=== PATIENT | male | born 1945 | race Caucasian/White ===

== ENCOUNTER 2017-03-19 22:35 | Emergency (ER) | payer OTHER ==
[2017-03-19] MEDS ORDERED: ONDANSETRON 4 MG/2 ML VIAL IVPB PRN (23:23)
[2017-03-19] MEDS ORDERED: FOLIC ACID INJECTION - 1 MG, THIAMINE HCL 100 MG, MULTIVIT INJECTION ADULT 10 ML in SOD... IVPB ONE (23:23)
[2017-03-19 23:42] VITALS: TEMP 97.8; BMI 35.9
[2017-03-20 00:25] LABS: MCH 20.8 pg (25.7-33.7); MCHC 31.7 g/dl (32.0-35.9); MEAN CELL VOLUME 65.7 fl (80-96); MEAN PLT VOLUME 8.8 fl (7.5-11.1); PLATELET COUNT 228 K/MM3 (134-434); RDW 15.9 % (11.9-15.9); WHITE BLOOD COUNT 10.8 K/mm3 (4.0-10.0)
[2017-03-20 00:41] LABS: ACTIVATED PTT 28.3 SECONDS (26.9-34.4)
[2017-03-20] MEDS ORDERED: LORazepam 1 MG TABLET PO ONE (01:39)
[2017-03-20 01:43] LABS: HYPOCHROMIA 3+; MICROCYTOSIS 1+; TOTAL CELLS COUNTED 100
[2017-03-20 01:44] LABS: PLATELET COMMENT2 FEW LARGE PLTS
[2017-03-20 01:49] LABS: ALBUMIN 3.8 g/dl (3.4-5.0); ANION GAP 16 (8-16); BILIRUBIN,TOTAL 0.6 mg/dL (0.2-1.0); CALCIUM 8.8 mg/dL (8.5-10.1); CO2 18 mmol/L (21-32); CREATININE 0.8 mg/dL (0.7-1.3); GLUCOSE,RANDOM 130 mg/dL (74-106); SGOT/AST 29 U/L (15-37); SGPT/ALT 30 U/L (12-78); TOT PROT 6.7 g/dl (6.4-8.2)
[2017-03-20 01:52] LABS: ALK PHOS 65 U/L (45-117); CPK 342 IU/L (39-308); TROPONIN I 0.05 ng/ml (0.00-0.05)
[2017-03-20] MEDS ORDERED: LORazepam 0.5 MG TABLET ONE (01:52)
--- NOTE | 2017-03-20 02:37 | PDOC ---
History of Present Illness - General Chief Complaint: Alcohol intoxication Stated Complaint: INTOX/FALL Time Seen by Provider: 03/19/17 23:08 History Source: Patient Exam Limitations: Intoxication - History of Present Illness Initial Comments: 03/20/17 02:30 71yo Male patient w/ PmHx: HTN, Cardiac Stent (2011), Kidney transplant (2013), Rheumatoid Arthritis presents to ED c/o fall. Patient states he was out drinking at [employer], and Vodka with soda x 2. While leaving the bar, he lost his balance and fell. Patient states he was unable to get up, and his friend he was with could not lift him as well, so he called 911. Patient denies head injury, LOC, CP, Abd pain, n/v/d, or any other complaints at this time. Occurred: reports: just prior to arrival Pain Location: reports: lower extremity, upper extremity. denies: none, abdomen , back, chest, face, head, mouth, neck, other, pelvis Method of Injury: Yes: fall. No: unknown, assault, direct blow, motor vehicle crash, other Modifying Factors: worse with: None, cold therapy, immobilization, pain medication, rest, other Loss of Consciousness: no loss of consciousness Associated Symptoms (Fall): trouble walking Past History - Travel Traveled outside of the country in the last 30 days: No Close contact w/someone who was outside of country & ill: No - Past Medical History Allergies/Adverse Reactions: Allergies Allergy/AdvReac Type Severity Reaction Status Date / Time No Known Allergies Allergy Verified 03/19/17 23:39 Home Medications: Ambulatory Orders Amlodipine Besylate [Norvasc -] 5 mg PO DAILY 03/19/17 Aspirin [[place] Aspirin] 81 mg PO DAILY 03/19/17 Chlorthalidone 25 mg PO DAILY 03/19/17 Cholecalciferol (Vitamin D3) [Vitamin D3 -] 50,000 unit PO WEEKLY 03/19/17 Etanercept [Enbrel] 50 mg SQ WEEKLY 03/19/17 Insulin Glargine,Hum.rec.anlog [Lantus Solostar PEN (NF)] 40 units SQ HS Insulin Lispro [Humalog] 12 unit SQ TID 03/19/17 Linagliptin [Tradjenta] 5 mg PO DAILY 03/19/17 Magnesium 600 mg PO DAILY 03/19/17 Metformin HCl 500 mg PO TID 03/19/17 Metoprolol Tartrate [Lopressor -] 75 mg PO BID 03/19/17 Mycophenolate Sodium [Myfortic] 120 mg PO HS 03/19/17 Mycophenolate Sodium [Myfortic] 360 mg PO AM 03/19/17 Prednisolone [Millipred] 5 mg PO DAILY 03/19/17 Simvastatin 20 mg PO HS 03/19/17 Tacrolimus [Prograf] 2 mg PO BID 03/19/17 Cardiac Disorders: Yes Diabetes: Yes HTN: Yes - Psycho/Social/Smoking Cessation Hx Suicidal Ideation: No Smoking History: Current some day smoker Have you smoked in the past 12 months: Yes Information on smoking cessation initiated: No Hx Alcohol Use: Yes Substance Use Type: Alcohol Trauma Specific PMHX - Complaint Specific PMHX Arthritis: No Back Injury: No Neck Injury: No Hx Sacro Iliac Joint Dysfunction: No Review of Systems - Review of Systems Able to Perform ROS?: Yes Is the patient limited Mohawk proficient: No Constitutional: Yes: Weakness. No: Chills, Fever Respiratory: No: Cough, Shortness of Breath, Stridor, Wheezing Cardiac (ROS): No: Chest Pain, Edema, Lightheadedness, Palpitations, Syncope, Chest Tightness ABD/GI: No: Constipated, Diarrhea, Nausea, Poor Appetite, Poor Fluid Intake, Vomiting : No: Burning, Dysuria, Flank Pain, Hematuria Musculoskeletal: No: Back Pain, Joint Swelling, Muscle Pain, Muscle Weakness, Neck Pain, Joint Stiffness Integumentary: Yes: Other (Abrasion) Neurological: Yes: Unsteady Gait. No: Headache, Seizure, Weakness, Ataxia, Dizziness All Other Systems: Reviewed and Negative *Physical Exam - Vital Signs Last Vital Signs Temp Pulse Resp BP Pulse Ox 97.8 F 98 H 20 141/100 95 03/19/17 22:52 03/19/17 22:52 03/19/17 22:52 03/19/17 22:52 03/19/17 22:52 - Physical Exam General Appearance: Yes: Nourished, Appropriately Dressed, Alcohol on Breath. No: Apparent Distress, Mild Distress, Moderate Distress, Severe Distress HEENT: positive: EOMI, YONATHAN, Normal ENT Inspection, Normal Voice, Symmetrical, TMs Normal, Pharynx Normal. negative: Pharyngeal Erythema, Tonsillar Exudate, Tonsillar Erythema, TM Bulging, TM Dull, TM Erythema Neck: positive: Trachea midline, Normal Thyroid, Supple. negative: Lymphadenopathy (R), Lymphadenopathy (L), Tender lateral, Tender midline Respiratory/Chest: positive: Lungs Clear, Normal Breath Sounds. negative: Chest Tender, Respiratory Distress, Accessory Muscle Use, Labored Respiration, Rapid RR Cardiovascular: positive: Regular Rhythm, Regular Rate Gastrointestinal/Abdominal: positive: Normal Bowel Sounds, Soft, Distended. negative: Tender, Guarding, Rebound, Tenderness Musculoskeletal: positive: Normal Inspection. negative: CVA Tenderness Extremity: positive: Normal Capillary Refill, Normal Inspection, Normal Range of Motion, Pelvis Stable. negative: Pedal Edema, Swelling, Calf Tenderness, Erythema, Inflammation Integumentary: positive: Normal Color, Dry, Warm, Other (Abrasion to right elbow and forearm). negative: Rash, Swelling, Ecchymosis, Bruising Neurologic: positive: dry kiln loader II-XII NML intact, Fully Oriented, Alert, Normal Mood/ Affect, Normal Response, Motor Strength 11/20 ED Treatment Course - LABORATORY CBC & Chemistry Diagram: 03/20/17 00:15 03/20/17 01:00 - ADDITIONAL ORDERS Additional order review: Laboratory Results 03/20/17 03/20/17 03/20/17 01:00 01:00 00:15 INR PTT (Actin FS) Sodium 134 L Potassium 4.1 Chloride 100 Carbon Dioxide 18 L D Anion Gap 16 BUN 15 D Creatinine 0.8 Creat Clearance w eGFR > 60 Random Glucose 130 H D Calcium 8.8 Total Bilirubin 0.6 AST 29 D ALT 30 Alkaline Phosphatase 65 D Creatine Kinase 342 H Creatine Kinase Index 0.9 CK-MB (CK-2) 3.207 Troponin I 0.05 Total Protein 6.7 Albumin 3.8 Alcohol, Quantitative 57.2 H* Cancelled 03/20/17 03/20/17 00:15 00:15 INR 1.00 PTT (Actin FS) 28.3 Sodium Cancelled Potassium Cancelled Chloride Cancelled Carbon Dioxide Cancelled Anion Gap Cancelled BUN Cancelled Creatinine Cancelled Creat Clearance w eGFR Cancelled Random Glucose Cancelled Calcium Cancelled Total Bilirubin Cancelled AST Cancelled ALT Cancelled Alkaline Phosphatase Cancelled Creatine Kinase Cancelled Creatine Kinase Index CK-MB (CK-2) Troponin I Cancelled Total Protein Cancelled Albumin Cancelled Alcohol, Quantitative 09/02/17 00:15 RBC 5.09 MCV 65.7 L MCHC 31.7 L RDW 15.9 MPV 8.8 Neutrophils % Y Lymphocytes % Y - RADIOLOGY Radiology Studies Ordered: Category Date Time Status CERVICAL SPINE CT W/O CONTR [CT] Stat CT Scan 03/20/17 00:[address] WITHOUT CONTRAST [CT] Stat CT Scan 03/20/17 00:26 Taken ELBOW-LEFT [RAD] Stat Radiology 03/19/17 23:23 Ordered - Medications Given in the ED: ED Medications Discontinued Medications Generic Name Dose Route Start Last Admin Trade Name Freq PRN Reason Stop Dose Admin Lorazepam 1 mg 03/20/17 01:39 03/20/17 01:57 Ativan - PO 03/20/17 01:40 1 mg ONCE ONE Administration Medical Decision Making - Medical Decision Making 03/20/17 04:33 Patient refused X-ray of right elbow. 03/20/17 05:31 Patient ambulated 20 feet in [place]. Gait is steady, patient appears coherent. No acute distress noted. *DC/Admit/Observation/Transfer Diagnosis at time of Disposition: Intoxication Fall Qualifiers: Encounter type: initial encounter Qualified Code(s): W19.XXXA - Unspecified fall, initial encounter - Discharge Dispostion Disposition: HOME Condition at time of disposition: Improved Admit: No - Referrals Referrals: Gui Ma MD [Primary Care Provider] - - Patient Instructions Printed Discharge Instructions: Alcohol Use Disorder, DI for Abrasion Additional Instructions: Follow up with Dr. Ma this week for further evaluation. Drink plenty fluids and rest. Avoid alcohol at this time. Return if any concerns for further evaluation. Print Language: ALBANIAN
[2017-03-20 02:56] LABS: URINE APPEARANCE CLEAR; URINE BILIRUBIN NEGATIVE (NEGATIVE); URINE BLOOD NEGATIVE (NEGATIVE); URINE COLOR LT. YELLOW; URINE GLUCOSE (UA) NEGATIVE (NEGATIVE); URINE KETONE NEGATIVE (NEGATIVE); URINE LEUK ESTERASE NEGATIVE (NEGATIVE); URINE NITRITE NEGATIVE (NEGATIVE); URINE UROBILINOGEN 0.2 mg/dL (0.2-1.0)
[2017-03-20 02:57] LABS: URINE PROTEIN 2+ (NEGATIVE)
[2017-03-20 03:06] LABS: GRANULAR CASTS 3 /lpf; URINE HYALINE CAST 1 /lpf; URINE MUCUS RARE; URINE RBC <1 /hpf (0-3); URINE WBC 3 /hpf (3-5)
[2017-03-20 05:27] VITALS: BP 151/89; PULSE 89
== END 2017-03-20 05:41 | disposition home or self-care (01) ==
LOC: JER 22:35
PROC: 3E033GC Introduction of Other Therapeutic Substance into Peripheral Vein, Percutaneous Approach (ICD-10-PCS; principal; 2017-03-19)
DX: R10.10 Upper abdominal pain, unspecified (principal); S50.311A Abrasion of right elbow, initial encounter; S50.811A Abrasion of right forearm, initial encounter; W19.XXXA Unspecified fall, initial encounter; Y93.89 Activity, other specified; Y92.89 Other specified places as the place of occurrence of the external cause
CPT/HCPCS: 36415; 70450-TC; 72125-TC; 80053; 80307; 81003; 81015; 82553; 84484; 85025; 85610; 85730; 96365; 96366; 99283-25

== ENCOUNTER 2018-09-10 00:40 | Emergency (ER) | payer OTHER ==
--- NOTE | 2018-09-10 01:31 | PDOC ---
History of Present Illness - History of Present Illness Initial Comments: HTN, Cardiac Stent (2011), Kidney transplant (2013), and Rheumatoid Arthritis presenting to the ED forfall while intoxicated. Patient states that he was helping afriend get into his house after having over ten drinks and fell to the floor. Denies hitting his head or hurting any part of his body. EMS 09/10/18 01:33 <Hieu Sebastian - Last Filed: 09/10/18 04:46> <Thalia Sharma - Last Filed: 09/10/18 04:56> - General Stated Complaint: FALL Time Seen by Provider: 09/10/18 01:31 Past History - Past Medical History Cardiac Disorders: Yes Diabetes: Yes HTN: Yes - Suicide/Smoking/Psychosocial Hx Smoking History: Current some day smoker Have you smoked in the past 12 months: Yes Hx Alcohol Use: Yes Substance Use Type: Alcohol <Hieu Sebastian - Last Filed: 09/10/18 04:46> <Thalia Sharma - Last Filed: 09/10/18 04:56> - Past Medical History Allergies/Adverse Reactions: Allergies Allergy/AdvReac Type Severity Reaction Status Date / Time No Known Allergies Allergy Verified 09/10/18 02:53 Home Medications: Ambulatory Orders Amlodipine Besylate [Norvasc -] 5 mg PO DAILY 03/19/17 Aspirin [[place] Aspirin] 81 mg PO DAILY 03/19/17 Chlorthalidone 25 mg PO DAILY 03/19/17 Cholecalciferol (Vitamin D3) [Vitamin D3 -] 50,000 unit PO WEEKLY 03/19/17 Etanercept [Enbrel] 50 mg SQ WEEKLY 03/19/17 Insulin Glargine,Hum.rec.anlog [Lantus Solostar PEN (NF)] 40 units SQ HS Insulin Lispro [Humalog] 12 unit SQ TID 03/19/17 Linagliptin [Tradjenta] 5 mg PO DAILY 03/19/17 Magnesium 600 mg PO DAILY 03/19/17 Metoprolol Tartrate [Lopressor -] 75 mg PO BID 03/19/17 Mycophenolate Sodium [Myfortic] 120 mg PO HS 03/19/17 Prednisolone [Millipred] 5 mg PO DAILY 03/19/17 Simvastatin 20 mg PO HS 03/19/17 Tacrolimus [Prograf] 2 mg PO BID 03/19/17 metFORMIN HCL [Metformin HCl] 500 mg PO TID 03/19/17 *Physical Exam - Vital Signs Last Vital Signs Temp Pulse Resp BP Pulse Ox 97.6 F 88 18 158/84 96 09/10/18 00:45 09/10/18 00:45 09/10/18 00:45 09/10/18 00:45 09/10/18 00:45 <Thalia Sharma - Last Filed: 09/10/18 04:56> Moderate Sedation - Procedure Monitoring Vital Signs: Procedure Monitoring Vital Signs Temperature 97.6 F 09/10/18 00:45 Pulse Rate 88 09/10/18 00:45 Respiratory Rate 18 09/10/18 00:45 Blood Pressure 158/84 09/10/18 00:45 O2 Sat by Pulse Oximetry (%) 96 09/10/18 00:45 <Thalia Sharma - Last Filed: 09/10/18 04:56> Medical Decision Making - Medical Decision Making 09/10/18 03:03 Patient Name: RUBÉN FERREIRA THIS IS A PRELIMINARY REPORT FROM IMAGING CONCRETE TILE MACHINE OPERATOR EXAM: CT head without contrast IMAGES: 161 DATE OF EXAM: 2018-09-10 02:11:34 REASON FOR EXAM: Rule out bleed or fracture. COMPARISON: None. FINDINGS: There is cerebral atrophy. Chronic microvascular ischemic changes are noted. No acute intracranial hemorrhage or acute infarction. The visualized aspect of the paranasal sinuses and mastoid air cells are unremarkable. Exophthalmus. No acute fracture. 09/10/18 03:17 Patient Name: RUBÉN FERREIRA THIS IS A PRELIMINARY REPORT FROM IMAG[facility] CONCRETE TILE MACHINE OPERATOR EXAM: CT cervical spine without contrast IMAGES:328 DATE OF EXAM: 2018-09-10 02:08:40 REASON FOR EXAM: Rule out bleed or fracture COMPARISON: None Findings: Straightening of the cervical lordosis with normal alignment. Moderate degenerative changes noted. No acute cervical spine fracture or dislocation. Small posterior left thyroid nodule. 09/10/18 04:56 ETOH level 50s. Pt can be discharged safely. <Thalia Sharma - Last Filed: 09/10/18 04:56> *DC/Admit/Observation/Transfer - Discharge Dispostion Decision to Admit order: No <Hieu Sebastian - Last Filed: 09/10/18 04:46> <Thalia Sharma - Last Filed: 09/10/18 04:56> Diagnosis at time of Disposition: Intoxication Fall Qualifiers: Encounter type: initial encounter Qualified Code(s): W19.XXXA - Unspecified fall, initial encounter - Discharge Dispostion Disposition: HOME Condition at time of disposition: Improved - Referrals Referrals: Gui Ma MD [Primary Care Provider] - - Patient Instructions Printed Discharge Instructions: How to Prevent Falls Additional Instructions: You did not have a bleed in your head or fracture you neck. Please be careful while drinking. Please return to the ED if you have new or worsening symptoms. - Post Discharge Activity
[2018-09-10 02:54] VITALS: BMI 30.5
--- NOTE | 2018-09-10 04:04 | PDOC ---
Attending Attestation - ED Attending Attestation I have performed the following: I have examined & evaluated the patient, The case was reviewed & discussed with the resident, I agree w/resident's findings & plan - HPI HPI: 09/10/18 04:03 Pt comes with fall; he has known alcohol abuse/use. - Physicial Exam PE: 09/10/18 04:03 Agree with residet exam - Medical Decision Making 09/10/18 04:04 Home, as he is stable. Exam normal. CT scan head and c spine normal. 09/10/18 03:03 Patient Name: RUBÉN FERREIRA THIS IS A PRELIMINARY REPORT FROM IMAGING CIRCUIT DESIGN ENGINEER EXAM: CT head without contrast IMAGES: 161 DATE OF EXAM: 2018-09-10 02:11:34 REASON FOR EXAM: Rule out bleed or fracture. COMPARISON: None. FINDINGS: There is cerebral atrophy. Chronic microvascular ischemic changes are noted. No acute intracranial hemorrhage or acute infarction. The visualized aspect of the paranasal sinuses and mastoid air cells are unremarkable. Exophthalmus. No acute fracture. 09/10/18 03:17 Patient Name: RUBÉN FERREIRA THIS IS A PRELIMINARY REPORT FROM IMAGING CIRCUIT DESIGN ENGINEER EXAM: CT cervical spine without contrast IMAGES:328 DATE OF EXAM: 2018-09-10 02:08:40 REASON FOR EXAM: Rule out bleed or fracture COMPARISON: None Findings: Straightening of the cervical lordosis with normal alignment. Moderate degenerative changes noted. No acute cervical spine fracture or dislocation. Small posterior left thyroid nodule. 09/10/18 04:57 D/C home, as ETOH is 57. Pt ambulating about the ER and appears well.
[2018-09-10 05:12] VITALS: BP 139/81; PULSE 123; TEMP 98.4
== END 2018-09-10 05:03 | disposition home or self-care (01) ==
LOC: JER 00:40
DX: F10.120 Alcohol abuse with intoxication, uncomplicated (principal); Y90.2 Blood alcohol level of 40-59 mg/100 ml; W18.39XA Other fall on same level, initial encounter; Y93.89 Activity, other specified; Y92.098 Other place in other non-institutional residence as the place of occurrence of the external cause; Y99.8 Other external cause status; I25.10 Atherosclerotic heart disease of native coronary artery without angina pectoris; I10 Essential (primary) hypertension; Z95.5 Presence of coronary angioplasty implant and graft; E11.9 Type 2 diabetes mellitus without complications; Z79.4 Long term (current) use of insulin; E78.00 Pure hypercholesterolemia, unspecified; M06.9 Rheumatoid arthritis, unspecified; Z94.0 Kidney transplant status; F17.200 Nicotine dependence, unspecified, uncomplicated
CPT/HCPCS: 36415; 70450-TC; 72125-TC; 80307; 99282-25

== ENCOUNTER 2018-11-19 21:20 | Emergency (ER) | payer OTHER ==
[2018-11-19] MEDS ORDERED: FOLIC ACID INJECTION - 1 MG, THIAMINE HCL 100 MG, MULTIVIT INJECTION ADULT 10 ML in SOD... IVPB ONE (22:17)
[2018-11-19 22:37] VITALS: BMI 33.9
[2018-11-19 23:57] LABS: ALBUMIN 3.9 g/dl (3.4-5.0); ALK PHOS 65 U/L (45-117); ANION GAP 13 MMOL/L (8-16); BLOOD UREA NITROGEN 30 mg/dL (7-18); CALCIUM 9.9 mg/dL (8.5-10.1); CHLORIDE 98 mmol/L (98-107); CO2 21 mmol/L (21-32); CREATININE 1.8 mg/dL (0.55-1.3); GLUCOSE,RANDOM 279 mg/dL (74-106); POTASSIUM 3.8 mmol/L (3.5-5.1); SGOT/AST 41 U/L (15-37); SGPT/ALT 27 U/L (13-61); SODIUM 132 mmol/L (136-145); TOT PROT 7.5 g/dl (6.4-8.2)
[2018-11-20] MEDS ORDERED: SODIUM CHLORIDE 0.9% 500 ML INFUS.BAG IV ONE (00:46)
[2018-11-20] MEDS ORDERED: ASPIRIN 81 MG CHEWABLE TABLETS PO ONE (00:50)
[2018-11-20] MEDS ORDERED: METOPROLOL TARTRATE 50 MG TABLET (FP) PO ONE (00:51)
[2018-11-20 01:11] LABS: HEMATOCRIT 32.8 % (35.4-49); HEMOGLOBIN 10.3 GM/dL (11.7-16.9); MCH 20.7 pg (25.7-33.7); MCHC 31.5 g/dl (32.0-35.9); MEAN CELL VOLUME 65.6 fl (80-96); MEAN PLT VOLUME 8.9 fl (7.5-11.1); PLATELET COUNT 241 K/MM3 (134-434); RDW 16.2 % (11.9-15.9); WHITE BLOOD COUNT 16.1 K/mm3 (4.0-10.0)
[2018-11-20] MEDS ORDERED: ASPIRIN 81 MG CHEWABLE TABLETS ONE (01:19)
[2018-11-20] MEDS ORDERED: METOPROLOL TARTRATE 50 MG TABLET (FP) ONE (01:20)
--- NOTE | 2018-11-20 01:50 | PDOC ---
Documentation entered by Yaquelin Vega SCRIBE, acting as scribe for Thalia Sharma MD. Thalia Sharma MD: This documentation has been prepared by the Silvia bajwa Nirvannie, SCRIBE, under my direction and personally reviewed by me in its entirety. I confirm that the documentation accurately reflects all work, treatment, procedures, and medical decision making performed by me. History of Present Illness - General Stated Complaint: INTOX Time Seen by Provider: 11/19/18 21:40 History Source: Patient Exam Limitations: No Limitations - History of Present Illness Initial Comments: 11/19/18 22:39 The patient is a 73 year old male, with a significant past medical history of HTN, DMII, HLD, cardiac stenting (2009), kidney transplant (2013), and psoriatic arthritis, who presents to the emergency department s/p mechanical fall. As per patient, he was drinking today in [place] then drove home. Upon his arrival home, patient endorses urinating onto himself then a mechanical fall. Patients neighbors attempted to help him but, could not subsequently calling for EMS. As per EMS, patient was short of breath en route (no O2 saturation noted) thus they placed him on O2. While in the ED, patient has not complaints. He denies any LOC or head/neck trauma. He denies any recent fevers, chills, headache or dizziness. He denies any recent nausea, vomit, diarrhea or constipation. He denies any recent chest pain or shortness of breath. He denies any recent dysuria, frequency, urgency or hematuria. Allergies: NKDA Past surgical history: Knee replacement. Renal transplant (2013). Cardiac stenting Social History: Nonsmoker. Denies EtOH use and recreational drug use. Primary Care Physician: Dr. Ma GI: Dr. Gresham Past History - Past Medical History Allergies/Adverse Reactions: Allergies Allergy/AdvReac Type Severity Reaction Status Date / Time No Known Allergies Allergy Verified 09/10/18 02:53 Home Medications: Ambulatory Orders Amlodipine Besylate [Norvasc -] 5 mg PO DAILY 03/19/17 Aspirin [[place] Aspirin] 81 mg PO DAILY 03/19/17 Chlorthalidone 25 mg PO DAILY 03/19/17 Cholecalciferol (Vitamin D3) [Vitamin D3 -] 50,000 unit PO WEEKLY 03/19/17 Etanercept [Enbrel] 50 mg SQ WEEKLY 03/19/17 Insulin Glargine,Hum.rec.anlog [Lantus Solostar PEN (NF)] 40 units SQ HS Insulin Lispro [Humalog] 12 unit SQ TID 03/19/17 Linagliptin [Tradjenta] 5 mg PO DAILY 03/19/17 Magnesium 600 mg PO DAILY 03/19/17 Metoprolol Tartrate [Lopressor -] 75 mg PO BID 03/19/17 Mycophenolate Sodium [Myfortic] 120 mg PO HS 03/19/17 Prednisolone [Millipred] 5 mg PO DAILY 03/19/17 Simvastatin 20 mg PO HS 03/19/17 Tacrolimus [Prograf] 2 mg PO BID 03/19/17 metFORMIN HCL [Metformin HCl] 500 mg PO TID 03/19/17 Cardiac Disorders: Yes COPD: No Diabetes: Yes HTN: Yes - Immunization History Td Vaccination: Yes TDAP Vaccination: Yes Immunization Up to Date: Yes - Suicide/Smoking/Psychosocial Hx Smoking History: Current some day smoker Have you smoked in the past 12 months: Yes Hx Alcohol Use: Yes Drug/Substance Use Hx: No Substance Use Type: Alcohol Review of Systems - Review of Systems Able to Perform ROS?: Yes Comments:: 11/19/18 22:40 GENERAL/CONSTITUTIONAL: No fever or chills. No weakness. HEAD, EYES, EARS, NOSE AND THROAT: No change in vision. No ear pain or discharge. No sore throat. CARDIOVASCULAR: No chest pain or shortness of breath. RESPIRATORY: No cough, wheezing, or hemoptysis. GASTROINTESTINAL: No nausea, vomiting, diarrhea or constipation. GENITOURINARY: No dysuria, frequency, or change in urination. MUSCULOSKELETAL: No joint or muscle swelling or pain. No neck or back pain. SKIN: +Abrasions to the upper and lower extremity. NEUROLOGIC: No headache, vertigo, loss of consciousness, or change in strength/ sensation. ENDOCRINE: No increased thirst. No abnormal weight change. HEMATOLOGIC/LYMPHATIC: No anemia, easy bleeding, or history of blood clots. ALLERGIC/IMMUNOLOGIC: No hives or skin allergy. All Other Systems: Reviewed and Negative *Physical Exam - Vital Signs Last Vital Signs Temp Pulse Resp BP Pulse Ox 98.3 F 120 H 20 123/61 97 11/19/18 21:25 11/19/18 21:25 11/19/18 21:25 11/19/18 21:25 11/19/18 21:25 - Physical Exam Comments: 11/19/18 22:39 GENERAL: Awake, alert, and fully oriented, in no acute distress HEAD: NCAT. NECK: Normal ROM, supple, no lymphadenopathy, JVD, or masses LUNGS: Breath sounds equal, clear to auscultation bilaterally. No wheezes, and no crackles HEART: Regular rate and rhythm, normal S1 and S2, no murmurs, rubs or gallops ABDOMEN: Soft, nontender, normoactive bowel sounds. No guarding, no rebound. No masses EXTREMITIES: +Old surgical scars to the blt forearms. Able to pronate but not supinate secondary to old injuries. Hematoma to the right mid anterior calf. Abrasion to the left elbow. [place] neck fingers to the blt fingers, deformity to the wrist secondary to psoriatic arthritis. RUE fistula with good thrill. NEUROLOGICAL: Cranial nerves II through XII grossly intact. Normal speech. Strength 5/5 to blt UE and LE. ED Treatment Course - LABORATORY CBC & Chemistry Diagram: 11/20/18 01:04 11/19/18 22:29 - ADDITIONAL ORDERS Additional order review: Laboratory Results 11/19/18 11/19/18 22:29 22:29 Sodium 132 L Potassium 3.8 Chloride 98 Carbon Dioxide 21 Anion Gap 13 BUN 30 H Creatinine 1.8 H Creat Clearance w eGFR 37.27 Random Glucose 279 H Calcium 9.9 Total Bilirubin 1.0 AST 41 H ALT 27 Alkaline Phosphatase 65 Creatine Kinase 719 H Creatine Kinase Index 1.3 CK-MB (CK-2) 9.9 H Troponin I 4.00 H* Total Protein 7.5 Albumin 3.9 Alcohol, Quantitative < 3.0 - RADIOLOGY Radiology Studies Ordered: Category Date Time Status CHEST X-RAY PORTABLE* [RAD] Stat Radiology 11/20/18 00:47 Ordered - Medications Given in the ED: ED Medications Discontinued Medications Generic Name Dose Route Start Last Admin Trade Name Freq PRN Reason Stop Dose Admin Sodium Chloride 1,000 ml 11/20/18 00:46 11/20/18 00:48 Normal Saline - IV 11/20/18 00:47 1,000 ml ONCE ONE Administration *DC/Admit/Observation/Transfer Diagnosis at time of Disposition: Acute electrocardiogram changes, Elevated troponin, Fall, Tachycardia, RBBB - Discharge Dispostion Disposition: TRANSFER ACUTE CARE/OTHER HOSP Condition at time of disposition: Guarded Decision to Admit order: No - Referrals - Patient Instructions - Post Discharge Activity - Transfer to Acute Care Facility Receiving Facility: [facility]. Accepting Physician:: Medicine Auto accept to the ER; Dr. Jade
[2018-11-20 03:14] LABS: INR 1.1 (0.83-1.09)
[2018-11-20 05:17] VITALS: BP 139/69; PULSE 90; TEMP 97.7
--- NOTE | 2018-11-20 09:00 | EKG ---
Test Reason : Blood Pressure : / mmHG Vent. Rate : 110 BPM Atrial Rate : 110 BPM P-R Int : 216 ms QRS Dur : 146 ms QT Int : 410 ms P-R-T Axes : 033 001 003 degrees QTc Int : 554 ms SINUS TACHYCARDIA WITH 1ST DEGREE A-V BLOCK RIGHT BUNDLE BRANCH BLOCK ABNORMAL ECG WHEN COMPARED WITH ECG OF 16-FEB-2011 20:06, RIGHT BUNDLE BRANCH BLOCK IS NOW PRESENT Confirmed by BRAYAN CLOUD, JM ([id number]) on 11/20/2018 9:00:11 AM Referred By: Confirmed By:JM SCHMIDT MD
--- NOTE | 2018-11-20 09:19 | EKG ---
Test Reason : Blood Pressure : / mmHG Vent. Rate : 100 BPM Atrial Rate : 100 BPM P-R Int : 234 ms QRS Dur : 156 ms QT Int : 356 ms P-R-T Axes : 035 005 003 degrees QTc Int : 459 ms SINUS RHYTHM WITH 1ST DEGREE A-V BLOCK RIGHT BUNDLE BRANCH BLOCK ABNORMAL ECG WHEN COMPARED WITH ECG OF 19-NOV-2018 23:28, NO SIGNIFICANT CHANGE WAS FOUND Confirmed by BRAYAN CLOUD, JM ([id number]) on 11/20/2018 9:18:57 AM Referred By: Confirmed By:JM SCHMIDT MD
== END 2018-11-20 04:30 | disposition short-term general hospital (02) ==
LOC: JER 21:20 → JERBED 11-20 01:09 → UNDOADMIN 11-20 01:09 → UNDODISIN 11-20 04:26
PROC: 3E033GC Introduction of Other Therapeutic Substance into Peripheral Vein, Percutaneous Approach (ICD-10-PCS; principal; 2018-11-19)
PROC: 3E0337Z Introduction of Electrolytic and Water Balance Substance into Peripheral Vein, Percutaneous Approach (ICD-10-PCS; 2018-11-19)
DX: R94.31 Abnormal electrocardiogram [ECG] [EKG] (principal); R94.30 Abnormal result of cardiovascular function study, unspecified; R00.0 Tachycardia, unspecified; I45.10 Unspecified right bundle-branch block; I10 Essential (primary) hypertension; E11.9 Type 2 diabetes mellitus without complications; F17.210 Nicotine dependence, cigarettes, uncomplicated; W18.39XA Other fall on same level, initial encounter; Y93.89 Activity, other specified; Y92.89 Other specified places as the place of occurrence of the external cause; Z79.4 Long term (current) use of insulin; E78.5 Hyperlipidemia, unspecified
CPT/HCPCS: 36415; 71045-TC-FY; 80053; 80307; 82550; 82553; 84484; 85027; 85610; 93005; 93010; 99284-25; J7030

== ENCOUNTER 2019-05-09 07:23 | Day surgery (SDC) | payer OTHER ==
[2019-05-09 08:01] VITALS: BMI 34.7
--- NOTE | 2019-05-09 09:49 | HP ---
CHIEF COMPLAINT: Moh's closure PCP: Dr. 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 Patient presents today for left upper eyelid reconstruction with Dr. Barboza. Recent Travel: No PAST MEDICAL HISTORY: Hypertension Coronary artery disease Type II IDDM Psoriatic arthritis Alcohol abuse PAST SURGICAL HISTORY: Nephrectomy 2013 AV fistula arm surgeries Kidney transplant 2014 Right knee replacement 2018 Cardiac stents 2011 CABG x 4 2019 Cataract surgery OU 2018 Social History: Smoking: former Alcohol: yes; multiple ED admissions for alcohol-related falls and injuries; last drink one week ago Drugs: no Allergies No Known Allergies Allergy (Verified 09/10/18 02:53) HOME MEDICATIONS: Home Medications Medication Instructions Recorded Amlodipine Besylate [Norvasc -] 5 mg PO DAILY 03/19/17 Aspirin [[place] Aspirin] 81 mg PO DAILY 03/19/17 Chlorthalidone 25 mg PO DAILY 03/19/17 Cholecalciferol (Vitamin D3) 50,000 unit PO WEEKLY 03/19/17 [Vitamin D3 -] Etanercept [Enbrel] 50 mg SQ WEEKLY 03/19/17 Insulin Glargine,Hum.rec.anlog 30 units SQ DAILY 03/19/17 [Lantus Solostar PEN (NF)] Insulin Lispro [Humalog] 14 unit SQ TID 03/19/17 Linagliptin [Tradjenta] 5 mg PO DAILY 03/19/17 Magnesium 600 mg PO DAILY 03/19/17 Metoprolol Tartrate [Lopressor -] 75 mg PO BID 03/19/17 Mycophenolate Sodium [Myfortic] 360 mg PO BID 03/19/17 Prednisolone [Millipred] 5 mg PO DAILY 03/19/17 Simvastatin 40 mg PO HS 03/19/17 Tacrolimus [Prograf] 2 mg PO BID 03/19/17 metFORMIN HCL [Metformin HCl] 500 mg PO TID 03/19/17 Multivitamin [One-Daily 1 each PO DAILY 05/04/19 Multi-Vitamin] Cephalexin 250 mg PO QID 05/09/19 REVIEW OF SYSTEMS CONSTITUTIONAL: Absent: fever, chills, diaphoresis, generalized weakness, malaise, loss of appetite, weight change HEENT: Absent: rhinorrhea, nasal congestion, throat pain, throat swelling, difficulty swallowing, mouth swelling, ear pain, eye pain, visual changes CARDIOVASCULAR: Absent: chest pain, syncope, palpitations, irregular heart rate, lightheadedness , peripheral edema RESPIRATORY: Absent: cough, shortness of breath, dyspnea with exertion, orthopnea, wheezing, stridor, hemoptysis GASTROINTESTINAL: Absent: abdominal pain, abdominal distension, nausea, vomiting, diarrhea, constipation, melena, hematochezia GENITOURINARY: Absent: dysuria, frequency, urgency, hesitancy, hematuria, flank pain, genital pain MUSCULOSKELETAL: Absent: myalgia, arthralgia, joint swelling, back pain, neck pain SKIN: +incision left eyelid Absent: rash, itching, pallor HEMATOLOGIC/IMMUNOLOGIC: Absent: easy bleeding, easy bruising, lymphadenopathy, frequent infections ENDOCRINE: Absent: unexplained weight gain, unexplained weight loss, heat intolerance, cold intolerance NEUROLOGIC: Absent: headache, focal weakness or paresthesias, dizziness, unsteady gait, seizure, mental status changes, bladder or bowel incontinence PSYCHIATRIC: Absent: anxiety, depression, suicidal or homicidal ideation, hallucinations. PHYSICAL EXAMINATION Vital Signs - 24 hr 05/09/19 07:56 Temperature 97.4 F L Pulse Rate 78 Respiratory 18 Rate Blood Pressure 139/79 O2 Sat by Pulse 99 Oximetry (%) GENERAL: Awake, alert, and fully oriented, in no acute distress. HEAD: Gauze dressing over left eye, c/d/i; wound not visualized EYES: Pupils equal, round and reactive to light, extraocular movements intact, sclera anicteric, conjunctiva clear. LUNGS: Breath sounds equal, clear to auscultation bilaterally. No wheezes, and no crackles. No accessory muscle use. HEART: Regular rate and rhythm, normal S1 and S2 ABDOMEN: Soft, nontender, not distended UPPER EXTREMITIES: 2+ pulses, warm, well-perfused. No cyanosis. No clubbing. No peripheral edema. LOWER EXTREMITIES: 2+ pulses, warm, well-perfused. No calf tenderness. No peripheral edema. NEUROLOGICAL: Cranial nerves II-XII intact. Normal speech. 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 Patient presents today for left upper eyelid reconstruction with Dr. Barboza. Visit type - Emergency Visit Emergency Visit: No - New Patient This patient is new to me today: Yes Date on this admission: 05/09/19 - Critical Care Critical Care patient: No
[2019-05-09] MEDS ORDERED: ERYTHROMYCIN 0.5% OPHTHALMIC OINTMENT 3.5 GM TUBE ONE (10:01)
[2019-05-09] MEDS ORDERED: TETRACAINE 0.5% OPHTH SOLN 2 ML BOTTLE ONE (10:01)
[2019-05-09] MEDS ORDERED: LIDOCAINE 1%/EPI 1:100000 (20 ML MULTI DOSE VIAL) ONE (10:02)
[2019-05-09] MEDS ORDERED: BUPIVACAINE HCL/PF 0.5% (5MG/ML) 10 ML VIAL ONE (10:02)
[2019-05-09] MEDS ORDERED: POVIDONE-IODINE 5% OPHTHALMIC PREP 30 ML SOLUTION ONE (10:02)
[2019-05-09] MEDS ORDERED: MIDAZOLAM HCL 2 MG/2 ML SINGLE DOSE VIAL ONE ×2 (10:10)
[2019-05-09] MEDS ORDERED: GLYCOPYRROLATE 0.2 MG/1 ML VIAL ONE (10:10)
[2019-05-09] MEDS ORDERED: PROPOFOL 20 ML ONE ×2 (10:10)
[2019-05-09] MEDS ORDERED: ceFAZolin SODIUM 1 GM VIAL ONE (10:32)
[2019-05-09] MEDS ORDERED: DEXAMETHASONE SOD PHOSPHATE 4 MG/1 ML VIAL ONE (11:13)
[2019-05-09] MEDS ORDERED: ONDANSETRON 4 MG/2 ML VIAL ONE (11:13)
[2019-05-09] MEDS ORDERED: LACTATED RINGERS SOLUTION 1,000 ML IV SCH (11:30)
[2019-05-09] MEDS ORDERED: ONDANSETRON 4 MG/2 ML VIAL IVPUSH PRN (11:30)
[2019-05-09] MEDS ORDERED: oxyCODONE HCL 5 MG TABLET PO PRN (11:30)
[2019-05-09 12:32] VITALS: TEMP 98.2
--- NOTE | 2019-05-09 13:28 | OP ---
DATE OF OPERATION: 05/09/2019 PREOPERATIVE DIAGNOSIS: Carcinoma, left upper eyelid and left eyebrow. POSTOPERATIVE DIAGNOSIS: Carcinoma, left upper eyelid and left eyebrow. PROCEDURES: Myocutaneous flaps in an O-to-Z plasty fashion, left upper lid and left eyebrow. SURGEON: Dionne Chacon MD ANESTHESIA: Local with sedation. COMPLICATIONS: None. ESTIMATED BLOOD LOSS: 5-10 mL. OPERATIVE REPORT: Patient brought to the operating room and placed on the operating room table. Vital signs were monitored by anesthesia. Tetracaine was placed in both eyes. Wound was examined the defect in the junction of the left upper lid and left eyebrow. An O-to-Z plasty was marked with sterile marking pen. Patient was given intravenous sedation. After time-out was performed, a 50/50 mixture of 2% Xylocaine, 1:100,000 epinephrine, 0.5% Marcaine was injected subcutaneously throughout the left upper lid and eyebrow. A total of 5 mL was used. The patient was prepped and draped in the usual fashion exposing both eyes. Incisions were made below and above the circular defect nasally and temporally and then flaps were elevated with skin hooks and Aniya scissors and Wells scissors. These flaps were then advanced from an O to a Z plasty. The apexes of the Z were then tied with subcutaneous 5-0 Vicryl suture. Each arm of the advancement flap nasally and the advancement flap temporally was then sutured with subcutaneous 5-0 Vicryl suture, and the skin was closed with a combination of interrupted 6-0 plain suture at the juncture of the short arm of the Z and then 5-0 plain suture along the long arm of the Z along the nasal eyebrow and temporal eyebrow. Similar contour of the brows was created on both sides by trimming the skin as needed so that the left brow would be similar in contour to the right brow. Plastic technique was used throughout the case. Antibiotic irrigation was used throughout the case. A minimal amount of cautery was used throughout the case. Erythromycin ointment was placed on all the sutures at the end of the procedure, and the patient was taken to the recovery room in stable condition. DIONNE CHACON M.D. CANDIDA/[id number]
[2019-05-09 14:27] VITALS: BP 132/72; PULSE 74
== END 2019-05-09 13:00 | disposition home or self-care (01) ==
LOC: FASU 07:23
PROVIDERS: ATTEND Ophthalmology
PROC: 0KX10Z2 Transfer Facial Muscle with Skin and Subcutaneous Tissue, Open Approach (ICD-10-PCS; principal; 2019-05-09 10:33)
DX: C44.1091 Unspecified malignant neoplasm of skin of left upper eyelid, including canthus (principal); I10 Essential (primary) hypertension; I25.10 Atherosclerotic heart disease of native coronary artery without angina pectoris; E11.9 Type 2 diabetes mellitus without complications; Z95.5 Presence of coronary angioplasty implant and graft; Z95.1 Presence of aortocoronary bypass graft; Z79.4 Long term (current) use of insulin; Z94.0 Kidney transplant status
CPT/HCPCS: 82962; 94760

== ENCOUNTER 2021-02-17 16:28 | Emergency (ER) | payer OTHER ==
[2021-02-17 16:45] VITALS: BP 153/70; PULSE 87; TEMP 98.2; BMI 35.9
[2021-02-17] MEDS ORDERED: DIPHTH,PERTUSS(ACELL),TET 0.5 ML DISP.SYRIN IM ONE ×2 (17:59→18:35)
[2021-02-17] MEDS ORDERED: BACITRACIN 15 GM TUBE TOPICAL OINTMENT TP ONE (17:59)
[2021-02-17] MEDS ORDERED: BACITRACIN 15 GM TUBE TOPICAL OINTMENT ONE (18:15)
[2021-02-17] MEDS ORDERED: BACITRACIN 0.9 GM PACKET ONE (18:34)
== END 2021-02-17 19:15 | disposition home or self-care (01) ==
LOC: JER 16:28
PROC: 3E0234Z Introduction of Serum, Toxoid and Vaccine into Muscle, Percutaneous Approach (ICD-10-PCS; principal; 2021-02-17)
DX: S61.421A Laceration with foreign body of right hand, initial encounter (principal); S61.422A Laceration with foreign body of left hand, initial encounter; S51.811A Laceration without foreign body of right forearm, initial encounter; W01.0XXA Fall on same level from slipping, tripping and stumbling without subsequent striking against object, initial encounter; Y92.018 Other place in single-family (private) house as the place of occurrence of the external cause; Y93.01 Activity, walking, marching and hiking
CPT/HCPCS: 90471; 90715; 99284-25

== ENCOUNTER 2021-02-22 13:36 | Inpatient (IN) | payer OTHER ==
[2021-02-22] MEDS ORDERED: LIDOCAINE 5% TOPICAL PATCH TP ONE (14:34)
[2021-02-22] MEDS ORDERED: LIDOCAINE 5% TOPICAL PATCH ONE (14:42)
[2021-02-22 15:09] LABS: BASO % 0.3 % (0-2.0); EOS % 0.2 % (0-4.5); HEMATOCRIT 36.1 % (35.4-49); HEMOGLOBIN 11.6 GM/dL (11.7-16.9); LYMPH % 6.6 % (8-40); MCHC 32.2 g/dl (32.0-35.9); MEAN CELL VOLUME 65.4 fl (80-96); MEAN PLT VOLUME 8.6 fl (7.5-11.1); MONO % 7.8 % (3.8-10.2); NEUT % 85.1 % (42.8-82.8); PLATELET COUNT 284 10^3/uL (134-434); RBC 5.51 M/mm3 (4.00-5.60); WHITE BLOOD COUNT 11.1 K/mm3 (4.0-10.0)
[2021-02-22 15:22] LABS: CHLORIDE 102 mmol/L (98-107); SODIUM 136 mmol/L (136-145)
[2021-02-22 15:24] LABS: ALBUMIN 4.1 g/dl (3.4-5.0); CALCIUM 9.8 mg/dL (8.5-10.1)
[2021-02-22 15:25] LABS: ANION GAP 12 MMOL/L (8-16); BLOOD UREA NITROGEN 27.6 mg/dL (7-18); CO2 23 mmol/L (21-32); GLUCOSE,RANDOM 134 mg/dL (74-106)
[2021-02-22 15:28] LABS: CREATININE 1.4 mg/dL (0.55-1.3); SGOT/AST 25 U/L (15-37); SGPT/ALT 24 U/L (13-61)
[2021-02-22 15:29] LABS: BILIRUBIN,TOTAL 0.8 mg/dL (0.2-1); TOT PROT 7.8 g/dl (6.4-8.2)
[2021-02-22 15:31] LABS: ALK PHOS 56 U/L (45-117)
[2021-02-22] MEDS ORDERED: LACTATED RINGERS SOLUTION 1000 ML INFUS.BAG IV ONE (15:34)
[2021-02-22 19:17] LABS: URINE APPEARANCE CLEAR; URINE BILIRUBIN NEGATIVE (NEGATIVE); URINE COLOR YELLOW; URINE GLUCOSE (UA) 1+ (NEGATIVE); URINE KETONE TRACE (NEGATIVE); URINE LEUK ESTERASE NEGATIVE (NEGATIVE); URINE NITRITE NEGATIVE (NEGATIVE); URINE PROTEIN TRACE (NEGATIVE); URINE UROBILINOGEN 0.2 mg/dL (0.2-1.0)
[2021-02-22] MEDS ORDERED: LIDOCAINE PATCH REMOVAL MC ONE (22:00)
[2021-02-23 00:46] LABS: EOS % 0.6 % (0-4.5); HEMATOCRIT 33.3 % (35.4-49); HEMOGLOBIN 10.8 GM/dL (11.7-16.9); LYMPH % 14.6 % (8-40); MCH 20.9 pg (25.7-33.7); MCHC 32.4 g/dl (32.0-35.9); MEAN CELL VOLUME 64.3 fl (80-96); MEAN PLT VOLUME 8.3 fl (7.5-11.1); MONO % 11.6 % (3.8-10.2); NEUT % 72.2 % (42.8-82.8); PLATELET COUNT 225 10^3/uL (134-434); RBC 5.17 M/mm3 (4.00-5.60); WHITE BLOOD COUNT 8.6 K/mm3 (4.0-10.0)
[2021-02-23 01:53] VITALS: BMI 33.5
[2021-02-23] MEDS: ACETAMINOPHEN 325 MG TABLET (FP) PO PRN ×2 (02:20→17:26)
[2021-02-23] MEDS ORDERED: INSULIN SLIDING SCALE (NOVOLOG) 1 VIAL SQ SCH (07:00)
[2021-02-23] MEDS ORDERED: INSULIN (LEVEMIR) 100 UNITS/ML UNITS SQ SCH (07:00)
[2021-02-23] MEDS: HEPARIN NA (PORCINE) 5,000 UNITS/ML 1ML VIAL SQ SCH ×3 (07:12→21:46)
[2021-02-23] MEDS: INSULIN SLIDING SCALE (NOVOLOG) 1 VIAL SQ SCH ×4 (07:40→21:48)
[2021-02-23 08:41] LABS: BASO % 0.5 % (0-2.0); EOS % 1.5 % (0-4.5); HEMATOCRIT 32.7 % (35.4-49); HEMOGLOBIN 10.6 GM/dL (11.7-16.9); LYMPH % 15.3 % (8-40); MCH 21.1 pg (25.7-33.7); MCHC 32.3 g/dl (32.0-35.9); MEAN CELL VOLUME 65.3 fl (80-96); MONO % 10.9 % (3.8-10.2); NEUT % 71.8 % (42.8-82.8); PLATELET COUNT 227 10^3/uL (134-434); RBC 5.02 M/mm3 (4.00-5.60); RDW 14.9 % (11.9-15.9)
[2021-02-23 09:00] LABS: BLOOD UREA NITROGEN 28.4 mg/dL (7-18); CALCIUM 8.9 mg/dL (8.5-10.1)
[2021-02-23 09:01] LABS: MAGNESIUM 1.9 mg/dL (1.8-2.4)
[2021-02-23 09:04] LABS: CREATININE 1.2 mg/dL (0.55-1.3); PHOSPHOROUS 2.7 mg/dL (2.5-4.9)
[2021-02-23] MEDS ORDERED: INSULIN (NOVOLOG) ASPART 100 UNITS/ML 10ML VIAL ONE ×2 (11:48→17:12)
[2021-02-23] MEDS ORDERED: PT OWN MED DRAWER 7, Y5N ONE ×3 (14:32→21:01)
[2021-02-23] MEDS: predniSONE 5 MG TABLET (UD) PO SCH (14:37)
[2021-02-23] MEDS: MYCOPHENOLATE SODIUM 360 MG TABLET.DR PO SCH ×2 (14:38→21:44)
[2021-02-23] MEDS: TACROLIMUS ANHYDROUS 1 MG CAPSULE PO SCH ×2 (14:38→21:45)
[2021-02-23 15:52] LABS: RETICULOCYTES 2.01 % (0.5-1.5)
[2021-02-23] MEDS: SODIUM CHLORIDE 1,000 ML IV SCH (16:29)
[2021-02-23] MEDS ORDERED: METOPROLOL TARTRATE 25 MG TABLET (FP) ONE (20:59)
[2021-02-23] MEDS ORDERED: METOPROLOL TARTRATE 50 MG TABLET (FP) ONE (21:00)
[2021-02-23] MEDS: METOPROLOL TARTRATE 50 MG, METOPROLOL TARTRATE 25 MG PO SCH (21:44)
[2021-02-23] MEDS: ATORVASTATIN CA 20 MG TABLET (FP) PO SCH (21:45)
[2021-02-23] MEDS: INSULIN (LEVEMIR) 100 UNITS/ML UNITS SQ SCH (21:46)
[2021-02-23] MEDS ORDERED: METOPROLOL TARTRATE 50 MG TABLET (FP) PO SCH (22:00)
[2021-02-24] MEDS: INSULIN (LEVEMIR) 100 UNITS/ML UNITS SQ SCH ×2 (06:43→22:10)
[2021-02-24] MEDS: HEPARIN NA (PORCINE) 5,000 UNITS/ML 1ML VIAL SQ SCH ×3 (06:43→22:07)
[2021-02-24] MEDS: INSULIN SLIDING SCALE (NOVOLOG) 1 VIAL SQ SCH ×4 (06:44→22:10)
[2021-02-24] MEDS ORDERED: METOPROLOL TARTRATE 25 MG TABLET (FP) ONE ×2 (09:28→21:50)
[2021-02-24] MEDS ORDERED: METOPROLOL TARTRATE 50 MG TABLET (FP) ONE ×2 (09:28→21:50)
[2021-02-24] MEDS ORDERED: PT OWN MED DRAWER 7, Y5N ONE ×2 (09:30→09:43)
[2021-02-24 09:34] LABS: HEMATOCRIT 33.1 % (35.4-49); HEMOGLOBIN 10.7 GM/dL (11.7-16.9); MCH 21.4 pg (25.7-33.7); MCHC 32.4 g/dl (32.0-35.9); MEAN PLT VOLUME 8.8 fl (7.5-11.1); PLATELET COUNT 241 10^3/uL (134-434); RBC 5.02 M/mm3 (4.00-5.60); RDW 15.4 % (11.9-15.9)
[2021-02-24] MEDS: ASPIRIN 81 MG CHEWABLE TABLETS PO SCH (09:34)
[2021-02-24] MEDS: TACROLIMUS ANHYDROUS 1 MG CAPSULE PO SCH ×2 (09:34→22:12)
[2021-02-24] MEDS: METOPROLOL TARTRATE 50 MG, METOPROLOL TARTRATE 25 MG PO SCH ×2 (09:35→22:07)
[2021-02-24] MEDS: MULTIVITAMINS (DAILY MVI) TABLET (FP) PO SCH (09:36)
[2021-02-24] MEDS: amLODIPine BESYLATE 5 MG TABLET (FP) PO SCH (09:36)
[2021-02-24] MEDS: predniSONE 5 MG TABLET (UD) PO SCH (09:36)
[2021-02-24] MEDS: CHOLECALCIFEROL (VIT D3) 1,000 UNIT (25 MCG) TABLET PO SCH (09:37)
[2021-02-24] MEDS: MYCOPHENOLATE SODIUM 360 MG TABLET.DR PO SCH ×2 (09:37→22:11)
[2021-02-24 09:50] LABS: ALBUMIN 3.4 g/dl (3.4-5.0); BLOOD UREA NITROGEN 24.1 mg/dL (7-18)
[2021-02-24 09:54] LABS: CREATININE 1.1 mg/dL (0.55-1.3)
[2021-02-24 09:55] LABS: BILIRUBIN,TOTAL 0.7 mg/dL (0.2-1); TOT PROT 6.9 g/dl (6.4-8.2)
[2021-02-24] MEDS ORDERED: amLODIPine BESYLATE 5 MG TABLET (FP) PO SCH (10:00)
[2021-02-24] MEDS ORDERED: INSULIN (NOVOLOG) ASPART 100 UNITS/ML 10ML VIAL ONE ×4 (12:09→17:43)
[2021-02-24] MEDS: ACETAMINOPHEN 325 MG TABLET (FP) PO PRN (15:04)
[2021-02-24] MEDS: SODIUM CHLORIDE 1,000 ML IV SCH (18:43)
[2021-02-24] MEDS: ATORVASTATIN CA 20 MG TABLET (FP) PO SCH (22:21)
[2021-02-25] MEDS: HEPARIN NA (PORCINE) 5,000 UNITS/ML 1ML VIAL SQ SCH ×3 (05:51→21:46)
[2021-02-25] MEDS: INSULIN (LEVEMIR) 100 UNITS/ML UNITS SQ SCH ×2 (06:04→21:49)
[2021-02-25] MEDS: INSULIN SLIDING SCALE (NOVOLOG) 1 VIAL SQ SCH ×4 (06:04→21:48)
[2021-02-25] MEDS ORDERED: INSULIN (LEVEMIR) 100 UNITS/ML UNITS SQ ONE (06:08)
[2021-02-25] MEDS: ACETAMINOPHEN 325 MG TABLET (FP) PO PRN (07:51)
[2021-02-25 08:52] LABS: HEMATOCRIT 32.6 % (35.4-49); HEMOGLOBIN 10.5 GM/dL (11.7-16.9); MCH 21.1 pg (25.7-33.7); MCHC 32.2 g/dl (32.0-35.9); MEAN CELL VOLUME 65.5 fl (80-96); MEAN PLT VOLUME 9.4 fl (7.5-11.1); PLATELET COUNT 239 10^3/uL (134-434); RBC 4.97 M/mm3 (4.00-5.60); RDW 14.9 % (11.9-15.9); WHITE BLOOD COUNT 7.7 K/mm3 (4.0-10.0)
[2021-02-25] MEDS ORDERED: METOPROLOL TARTRATE 25 MG TABLET (FP) ONE ×2 (09:13→21:34)
[2021-02-25] MEDS ORDERED: PT OWN MED DRAWER 7, Y5N ONE ×5 (09:14→21:39)
[2021-02-25] MEDS ORDERED: METOPROLOL TARTRATE 50 MG TABLET (FP) ONE ×2 (09:14→21:34)
[2021-02-25] MEDS: METOPROLOL TARTRATE 50 MG, METOPROLOL TARTRATE 25 MG PO SCH ×2 (09:19→21:45)
[2021-02-25 09:20] LABS: CALCIUM 9.2 mg/dL (8.5-10.1)
[2021-02-25] MEDS: CHOLECALCIFEROL (VIT D3) 1,000 UNIT (25 MCG) TABLET PO SCH (09:20)
[2021-02-25] MEDS: MULTIVITAMINS (DAILY MVI) TABLET (FP) PO SCH (09:20)
[2021-02-25] MEDS: predniSONE 5 MG TABLET (UD) PO SCH (09:20)
[2021-02-25] MEDS: ASPIRIN 81 MG CHEWABLE TABLETS PO SCH (09:20)
[2021-02-25] MEDS: amLODIPine BESYLATE 5 MG TABLET (FP) PO SCH (09:20)
[2021-02-25 09:21] LABS: BLOOD UREA NITROGEN 20.7 mg/dL (7-18); MAGNESIUM 1.6 mg/dL (1.8-2.4)
[2021-02-25 09:25] LABS: PHOSPHOROUS 2.8 mg/dL (2.5-4.9)
[2021-02-25] MEDS: MYCOPHENOLATE SODIUM 360 MG TABLET.DR PO SCH ×2 (10:26→21:46)
[2021-02-25] MEDS: TACROLIMUS ANHYDROUS 1 MG CAPSULE PO SCH ×2 (10:27→21:46)
[2021-02-25] MEDS: SODIUM CHLORIDE 1,000 ML IV SCH (16:28)
[2021-02-25] MEDS: BACITRACIN 15 GM TUBE TOPICAL OINTMENT TP SCH ×2 (16:28→21:50)
[2021-02-25] MEDS ORDERED: MAGNESIUM OXIDE 400 MG TABLET (FP) PO ONE (16:49)
[2021-02-25] MEDS: MINERAL OIL/PET HY-PHL TOPICAL OINTMENT 454 GM JAR TP SCH (18:01)
[2021-02-25] MEDS ORDERED: MAG HYDROX/AL HYDROX/SIMETH 30 ML UNIT-DOSE CUP PO ONE (20:12)
[2021-02-25] MEDS: ATORVASTATIN CA 20 MG TABLET (FP) PO SCH (21:45)
[2021-02-26] MEDS: ACETAMINOPHEN 325 MG TABLET (FP) PO PRN (00:23)
[2021-02-26] MEDS: INSULIN SLIDING SCALE (NOVOLOG) 1 VIAL SQ SCH ×3 (06:29→17:19)
[2021-02-26] MEDS: SODIUM CHLORIDE 1,000 ML IV SCH (06:39)
[2021-02-26] MEDS: INSULIN (LEVEMIR) 100 UNITS/ML UNITS SQ SCH (06:40)
[2021-02-26] MEDS: HEPARIN NA (PORCINE) 5,000 UNITS/ML 1ML VIAL SQ SCH ×2 (06:40→13:22)
[2021-02-26] MEDS ORDERED: POLYETHYLENE GLYCOL (HEALTHYLAX) 3350 17 GM PACKET PO SCH (07:00)
[2021-02-26] MEDS ORDERED: SENNOSIDES 8.6MG TABLET (FP) PO ONE (07:00)
[2021-02-26] MEDS ORDERED: METOPROLOL TARTRATE 50 MG TABLET (FP) ONE (09:17)
[2021-02-26] MEDS ORDERED: METOPROLOL TARTRATE 25 MG TABLET (FP) ONE (09:17)
[2021-02-26] MEDS ORDERED: PT OWN MED DRAWER 7, Y5N ONE (09:18)
[2021-02-26] MEDS: MINERAL OIL/PET HY-PHL TOPICAL OINTMENT 454 GM JAR TP SCH (09:27)
[2021-02-26] MEDS: METOPROLOL TARTRATE 50 MG, METOPROLOL TARTRATE 25 MG PO SCH (09:28)
[2021-02-26] MEDS: amLODIPine BESYLATE 5 MG TABLET (FP) PO SCH (09:28)
[2021-02-26] MEDS: ASPIRIN 81 MG CHEWABLE TABLETS PO SCH (09:28)
[2021-02-26] MEDS: predniSONE 5 MG TABLET (UD) PO SCH (09:28)
[2021-02-26] MEDS: CHOLECALCIFEROL (VIT D3) 1,000 UNIT (25 MCG) TABLET PO SCH (09:28)
[2021-02-26] MEDS: MULTIVITAMINS (DAILY MVI) TABLET (FP) PO SCH (09:28)
[2021-02-26] MEDS: TACROLIMUS ANHYDROUS 1 MG CAPSULE PO SCH (09:29)
[2021-02-26] MEDS: BACITRACIN 15 GM TUBE TOPICAL OINTMENT TP SCH (09:30)
[2021-02-26] MEDS: MYCOPHENOLATE SODIUM 360 MG TABLET.DR PO SCH (09:30)
[2021-02-26] MEDS ORDERED: CHOLECALCIFEROL (VIT D3) 400 UNIT (10 MCG) TABLET PO SCH (10:00)
[2021-02-26] MEDS ORDERED: PATIENT'S OWN MEDICATION (NON-FORMULARY) (Etanercept [Enbrel] 50 MG/ML Syringe) SQ SCH (10:00)
[2021-02-26] MEDS ORDERED: INSULIN (NOVOLOG) ASPART 100 UNITS/ML 10ML VIAL ONE ×2 (11:40→17:16)
[2021-02-26 14:36] VITALS: BP 141/63; PULSE 80; TEMP 97.6
== END 2021-02-26 20:00 | DRG 638 ==
LOC: JER 13:36 → JERBED 15:36 → J8W 02-23 01:03
PROVIDERS: ADMIT Internal Medicine; ATTEND Internal Medicine
DX: E11.65 Type 2 diabetes mellitus with hyperglycemia (principal); Z94.0 Kidney transplant status; E86.0 Dehydration; I25.10 Atherosclerotic heart disease of native coronary artery without angina pectoris; E78.5 Hyperlipidemia, unspecified; W19.XXXA Unspecified fall, initial encounter; R53.1 Weakness; E11.40 Type 2 diabetes mellitus with diabetic neuropathy, unspecified; E83.42 Hypomagnesemia; I10 Essential (primary) hypertension; Z95.1 Presence of aortocoronary bypass graft; Z98.61 Coronary angioplasty status
CPT/HCPCS: 36415; 70450-TC; 71046-TC-FY; 72125-TC; 72170-TC-FY; 80048; 80053; 80197; 81003; 82607; 82728; 82746; 82962; 83036; 83540; 83550; 83735; 84100; 84436; 84443; 84484; 85025; 85027; 85045; 86850; 86900; 86901; 87040; 87086; 93005; 93010; 97116-GP; 97162-GP; 99285-25; C9803; J1644; U0003; U0005

== ENCOUNTER 2021-08-02 13:44 | Inpatient (IN) | payer OTHER ==
[2021-08-02 18:15] LABS: EOS % 0.6 % (0-4.5); HEMATOCRIT 34.2 % (35.4-49); HEMOGLOBIN 10.8 GM/dL (11.7-16.9); LYMPH % 12.9 % (8-40); MCH 20.3 pg (25.7-33.7); MCHC 31.7 g/dl (32.0-35.9); MEAN PLT VOLUME 8.7 fl (7.5-11.1); MONO % 10.4 % (3.8-10.2); NEUT % 75.1 % (42.8-82.8); PLATELET COUNT 523 10^3/uL (134-434); RBC 5.34 M/mm3 (4.00-5.60); RDW 15.3 % (11.9-15.9); WHITE BLOOD COUNT 9.8 K/mm3 (4.0-10.0)
[2021-08-02 18:22] LABS: CHLORIDE 104 mmol/L (98-107); SODIUM 136 mmol/L (136-145)
[2021-08-02 18:25] LABS: ALBUMIN 3.4 g/dl (3.4-5.0); ANION GAP 12 MMOL/L (8-16); BLOOD UREA NITROGEN 45.1 mg/dL (7-18); CO2 20 mmol/L (21-32); GLUCOSE,RANDOM 191 mg/dL (74-106)
[2021-08-02 18:28] LABS: CREATININE 1.7 mg/dL (0.55-1.3); SGOT/AST 17 U/L (15-37); SGPT/ALT 13 U/L (13-61)
[2021-08-02 18:30] LABS: BILIRUBIN,TOTAL 0.8 mg/dL (0.2-1); TOT PROT 7.5 g/dl (6.4-8.2)
[2021-08-02 18:31] LABS: ALK PHOS 65 U/L (45-117)
[2021-08-02] MEDS ORDERED: SODIUM CHLORIDE 0.9% 500 ML INFUS.BAG IV ONE (18:38)
[2021-08-02] MEDS: ACETAMINOPHEN 325 MG TABLET (FP) PO PRN (21:50)
[2021-08-02] MEDS ORDERED: ACETAMINOPHEN 325 MG TABLET (FP) ONE (21:54)
[2021-08-02] MEDS ORDERED: SODIUM CHLORIDE 1,000 ML IV SCH (23:00)
[2021-08-03 00:34] VITALS: BMI 28.8
[2021-08-03] MEDS ORDERED: PATIENT'S OWN MEDICATION (NON-FORMULARY) (Etanercept [Enbrel] 50 MG/ML Syringe) SQ SCH (01:45)
[2021-08-03 01:49] LABS: URINE APPEARANCE CLEAR; URINE BILIRUBIN 2+ (NEGATIVE); URINE COLOR DK YELLOW; URINE GLUCOSE (UA) NEGATIVE (NEGATIVE); URINE KETONE TRACE (NEGATIVE); URINE LEUK ESTERASE NEGATIVE (NEGATIVE); URINE NITRITE NEGATIVE (NEGATIVE); URINE PROTEIN TRACE (NEGATIVE); URINE UROBILINOGEN 0.2 mg/dL (0.2-1.0)
[2021-08-03] MEDS: HEPARIN NA (PORCINE) 5,000 UNITS/ML 1ML VIAL SQ SCH ×3 (05:27→21:11)
[2021-08-03] MEDS: INSULIN SLIDING SCALE (NOVOLOG) 1 VIAL SQ SCH ×4 (06:02→21:17)
[2021-08-03] MEDS: METOPROLOL TARTRATE 25 MG TABLET (FP) PO SCH ×2 (09:08→21:11)
[2021-08-03] MEDS: MYCOPHENOLATE SODIUM 360 MG TABLET.DR PO SCH ×2 (09:09→21:11)
[2021-08-03] MEDS: TACROLIMUS ANHYDROUS 1 MG CAPSULE PO SCH ×2 (09:09→21:11)
[2021-08-03] MEDS: ASPIRIN 81 MG CHEWABLE TABLETS PO SCH (09:09)
[2021-08-03 11:21] LABS: BASO % 0.8 % (0-2.0); EOS % 1.1 % (0-4.5); HEMATOCRIT 31.3 % (35.4-49); HEMOGLOBIN 9.6 GM/dL (11.7-16.9); LYMPH % 10.9 % (8-40); MCHC 30.8 g/dl (32.0-35.9); MEAN CELL VOLUME 64.1 fl (80-96); MONO % 11.1 % (3.8-10.2); NEUT % 76.1 % (42.8-82.8); PLATELET COUNT 465 10^3/uL (134-434); RBC 4.88 M/mm3 (4.00-5.60); RDW 15.6 % (11.9-15.9); WHITE BLOOD COUNT 7.9 K/mm3 (4.0-10.0)
[2021-08-03 11:29] LABS: MCH 19.7 pg (25.7-33.7)
[2021-08-03 11:40] LABS: BLOOD UREA NITROGEN 47.9 mg/dL (7-18); CALCIUM 9.6 mg/dL (8.5-10.1)
[2021-08-03 11:41] LABS: MAGNESIUM 1.7 mg/dL (1.8-2.4)
[2021-08-03 11:43] LABS: CREATININE 1.5 mg/dL (0.55-1.3); PHOSPHOROUS 3.6 mg/dL (2.5-4.9)
[2021-08-03 11:45] LABS: BILIRUBIN,TOTAL 0.6 mg/dL (0.2-1); TOT PROT 6.7 g/dl (6.4-8.2)
[2021-08-03] MEDS: amLODIPine BESYLATE 5 MG TABLET (FP) PO SCH (14:04)
[2021-08-03] MEDS ORDERED: LOPERAMIDE HCL 2 MG CAPSULE PO PRN (18:09)
[2021-08-03] MEDS: LACTATED RINGERS SOLUTION 1,000 ML/1,000 ML INFUS.BAG IV SCH (20:10)
[2021-08-03] MEDS: ATORVASTATIN CA 20 MG TABLET (FP) PO SCH (21:11)
[2021-08-04] MEDS: HEPARIN NA (PORCINE) 5,000 UNITS/ML 1ML VIAL SQ SCH ×3 (06:04→21:23)
[2021-08-04] MEDS: INSULIN SLIDING SCALE (NOVOLOG) 1 VIAL SQ SCH ×4 (06:05→21:30)
[2021-08-04] MEDS: ASPIRIN 81 MG CHEWABLE TABLETS PO SCH (09:48)
[2021-08-04] MEDS: METOPROLOL TARTRATE 25 MG TABLET (FP) PO SCH ×2 (09:48→21:23)
[2021-08-04] MEDS: amLODIPine BESYLATE 5 MG TABLET (FP) PO SCH (09:48)
[2021-08-04] MEDS: MYCOPHENOLATE SODIUM 360 MG TABLET.DR PO SCH ×2 (09:48→21:24)
[2021-08-04] MEDS: TACROLIMUS ANHYDROUS 1 MG CAPSULE PO SCH ×2 (09:48→21:25)
[2021-08-04 12:35] LABS: BASO % 1.3 % (0-2.0); EOS % 1.9 % (0-4.5); HEMATOCRIT 29.4 % (35.4-49); LYMPH % 11.1 % (8-40); MCHC 30.7 g/dl (32.0-35.9); MEAN CELL VOLUME 63.9 fl (80-96); MEAN PLT VOLUME 9.4 fl (7.5-11.1); MONO % 10.3 % (3.8-10.2); NEUT % 75.4 % (42.8-82.8); PLATELET COUNT 436 10^3/uL (134-434); RDW 15.3 % (11.9-15.9)
[2021-08-04 12:37] LABS: MCH 19.6 pg (25.7-33.7)
[2021-08-04 12:52] LABS: ALBUMIN 2.9 g/dl (3.4-5.0); BLOOD UREA NITROGEN 43.1 mg/dL (7-18); CALCIUM 9.7 mg/dL (8.5-10.1); MAGNESIUM 2.2 mg/dL (1.8-2.4)
[2021-08-04 12:56] LABS: BILIRUBIN,TOTAL 0.5 mg/dL (0.2-1); CREATININE 1.3 mg/dL (0.55-1.3); TOT PROT 6.6 g/dl (6.4-8.2)
[2021-08-04] MEDS: ACETAMINOPHEN 325 MG TABLET (FP) PO PRN (21:23)
[2021-08-04] MEDS: ATORVASTATIN CA 20 MG TABLET (FP) PO SCH (21:23)
[2021-08-04] MEDS: LACTATED RINGERS SOLUTION 1,000 ML/1,000 ML INFUS.BAG IV SCH (21:24)
[2021-08-05] MEDS: LACTATED RINGERS SOLUTION 1,000 ML/1,000 ML INFUS.BAG IV SCH ×2 (03:30→18:03)
[2021-08-05] MEDS: HEPARIN NA (PORCINE) 5,000 UNITS/ML 1ML VIAL SQ SCH ×3 (05:39→21:41)
[2021-08-05] MEDS: INSULIN SLIDING SCALE (NOVOLOG) 1 VIAL SQ SCH ×4 (06:08→21:42)
[2021-08-05 09:11] LABS: EOS % 2.3 % (0-4.5); HEMOGLOBIN 8.6 GM/dL (11.7-16.9); LYMPH % 14.5 % (8-40); MCHC 30.6 g/dl (32.0-35.9); MEAN CELL VOLUME 64.3 fl (80-96); MEAN PLT VOLUME 9.3 fl (7.5-11.1); MONO % 10.2 % (3.8-10.2); PLATELET COUNT 376 10^3/uL (134-434); RBC 4.36 M/mm3 (4.00-5.60); RDW 15.4 % (11.9-15.9); WHITE BLOOD COUNT 5.9 K/mm3 (4.0-10.0)
[2021-08-05 09:16] LABS: MCH 19.7 pg (25.7-33.7)
[2021-08-05 09:23] LABS: ALBUMIN 2.7 g/dl (3.4-5.0); BLOOD UREA NITROGEN 33.4 mg/dL (7-18); CALCIUM 9.4 mg/dL (8.5-10.1)
[2021-08-05 09:25] LABS: MAGNESIUM 1.9 mg/dL (1.8-2.4)
[2021-08-05 09:26] LABS: CREATININE 1.1 mg/dL (0.55-1.3)
[2021-08-05 09:28] LABS: BILIRUBIN,TOTAL 0.6 mg/dL (0.2-1); TOT PROT 6.2 g/dl (6.4-8.2)
[2021-08-05] MEDS: ASPIRIN 81 MG CHEWABLE TABLETS PO SCH (10:01)
[2021-08-05] MEDS: METOPROLOL TARTRATE 25 MG TABLET (FP) PO SCH ×2 (10:02→21:40)
[2021-08-05] MEDS: amLODIPine BESYLATE 5 MG TABLET (FP) PO SCH (10:02)
[2021-08-05] MEDS: MYCOPHENOLATE SODIUM 360 MG TABLET.DR PO SCH ×2 (10:02→21:41)
[2021-08-05] MEDS: TACROLIMUS ANHYDROUS 1 MG CAPSULE PO SCH ×2 (10:03→21:41)
[2021-08-05] MEDS ORDERED: INSULIN (NOVOLOG) ASPART 100 UNITS/ML 10ML VIAL ONE (11:34)
[2021-08-05] MEDS: ACETAMINOPHEN 325 MG TABLET (FP) PO PRN (21:40)
[2021-08-05] MEDS: ATORVASTATIN CA 20 MG TABLET (FP) PO SCH (21:40)
[2021-08-05] MEDS ORDERED: MELATONIN 5 MG TABLETS PO ONE (21:53)
[2021-08-06] MEDS: LACTATED RINGERS SOLUTION 1,000 ML/1,000 ML INFUS.BAG IV SCH (01:11)
[2021-08-06] MEDS: HEPARIN NA (PORCINE) 5,000 UNITS/ML 1ML VIAL SQ SCH ×2 (05:26→14:30)
[2021-08-06] MEDS: INSULIN SLIDING SCALE (NOVOLOG) 1 VIAL SQ SCH ×2 (06:00→11:22)
[2021-08-06 06:46] VITALS: TEMP 97.3
[2021-08-06] MEDS: METOPROLOL TARTRATE 25 MG TABLET (FP) PO SCH (09:29)
[2021-08-06] MEDS: MYCOPHENOLATE SODIUM 360 MG TABLET.DR PO SCH (09:30)
[2021-08-06] MEDS: amLODIPine BESYLATE 5 MG TABLET (FP) PO SCH (09:30)
[2021-08-06] MEDS: ASPIRIN 81 MG CHEWABLE TABLETS PO SCH (09:30)
[2021-08-06] MEDS: TACROLIMUS ANHYDROUS 1 MG CAPSULE PO SCH (09:31)
[2021-08-06 10:31] LABS: BASO % 0.9 % (0-2.0); EOS % 2.7 % (0-4.5); HEMATOCRIT 27.6 % (35.4-49); HEMOGLOBIN 8.5 GM/dL (11.7-16.9); LYMPH % 16.1 % (8-40); MCH 19.6 pg (25.7-33.7); MCHC 30.8 g/dl (32.0-35.9); MEAN CELL VOLUME 63.8 fl (80-96); MEAN PLT VOLUME 9.4 fl (7.5-11.1); MONO % 8.3 % (3.8-10.2); PLATELET COUNT 346 10^3/uL (134-434); RBC 4.33 M/mm3 (4.00-5.60); RDW 14.8 % (11.9-15.9); WHITE BLOOD COUNT 5.8 K/mm3 (4.0-10.0)
[2021-08-06 11:05] LABS: ALBUMIN 2.7 g/dl (3.4-5.0); BLOOD UREA NITROGEN 23.1 mg/dL (7-18); CALCIUM 9.7 mg/dL (8.5-10.1); MAGNESIUM 1.6 mg/dL (1.8-2.4)
[2021-08-06 11:09] LABS: CREATININE 1.1 mg/dL (0.55-1.3)
[2021-08-06 11:10] LABS: BILIRUBIN,TOTAL 0.6 mg/dL (0.2-1); TOT PROT 6.3 g/dl (6.4-8.2)
[2021-08-06 11:27] LABS: ANISOCYTOSIS 3+; MACROCYTOSIS 0; OVALOCYTE 2+; PLATELET ESTIMATE NORMAL; TARGET CELLS 2+; TEAR DROP CELLS 1+
[2021-08-06] MEDS ORDERED: MAGNESIUM SULF 50% (8.12 MEQ/2 ML-1 GM VIAL) IVPB ONE (11:40)
[2021-08-06] MEDS ORDERED: MAGNESIUM OXIDE 400 MG TABLET (FP) PO ONE (11:49)
[2021-08-06 15:07] VITALS: BP 123/57; PULSE 73
== END 2021-08-06 17:08 | disposition home or self-care (01) | DRG 683 ==
LOC: JER 13:44 → JERBED 20:36 → J6S 23:18
PROVIDERS: ADMIT Internal Medicine; ATTEND Nurse Practitioner Family
DX: N17.9 Acute kidney failure, unspecified (principal); Z94.0 Kidney transplant status; E78.5 Hyperlipidemia, unspecified; I25.10 Atherosclerotic heart disease of native coronary artery without angina pectoris; M06.9 Rheumatoid arthritis, unspecified; R29.6 Repeated falls; D75.839 Thrombocytosis, unspecified; E11.65 Type 2 diabetes mellitus with hyperglycemia; R19.7 Diarrhea, unspecified; L40.50 Arthropathic psoriasis, unspecified; I12.9 Hypertensive chronic kidney disease with stage 1 through stage 4 chronic kidney disease, or unspecified chronic kidney disease; E11.22 Type 2 diabetes mellitus with diabetic chronic kidney disease; N18.9 Chronic kidney disease, unspecified; E66.9 Obesity, unspecified; Z68.28 Body mass index [BMI] 28.0-28.9, adult; D63.1 Anemia in chronic kidney disease; Z95.1 Presence of aortocoronary bypass graft; Z96.651 Presence of right artificial knee joint; Z85.9 Personal history of malignant neoplasm, unspecified
CPT/HCPCS: 36415; 71045-TC-FY; 76776-TC; 80053; 80197; 81003; 82607; 82746; 82962; 83036; 83605; 83735; 84100; 84484; 85025; 85379; 86140; 87040; 87086; 93005; 93010; 97116-GP; 97162-GP; 99285-25; C9803; J1644; U0003; U0005